=== PATIENT | male | born 1940 | race Caucasian/White ===

== ENCOUNTER 2020-01-30 06:13 | Day surgery (SDC) | payer MEDICARE, OTHER ==
[2020-01-30] MEDS ORDERED: fentaNYL 100 MCG/2 ML SDV IV ONE ×3 (06:14→07:27)
[2020-01-30] MEDS ORDERED: Midazolam 1 MG/ML 2 ML SDV IV ONE ×7 (06:14→07:41)
[2020-01-30] MEDS ORDERED: fentaNYL 100 MCG/2 ML SDV ONE (06:21)
[2020-01-30] MEDS ORDERED: Midazolam 1 MG/ML 2 ML SDV ONE (06:21)
[2020-01-30] MEDS ORDERED: Sodium Chloride 0.9% 10 ML Syringe FLUSH PRN (07:28)
[2020-01-30] MEDS ORDERED: Dextrose 5%-0.45% NaCl 1,000 ML IV SCH (07:30)
[2020-01-30 10:13] VITALS: BP 171/54; PULSE 50
--- NOTE | 2020-01-30 14:40 | OR ---
DATE: 01/30/2020 PROCEDURES PERFORMED: Total colonoscopy and multiple cold snare polypectomies. INSTRUMENT USED: PCF-H190DL Olympus video colonoscope. PREMEDICATIONS: Fentanyl 100 mcg intravenous, Versed 4 mg intravenous. Nasal O2 cannula. The procedure was done under pulse oximetry, BP recording, and street commissioner. INDICATION: The patient with previous colonic polyps. Surveillance colonoscopic examination is done for detection of any polypoid lesions and removal, endoscopic hemostasis therapy if needed. DESCRIPTION OF PROCEDURE: Initial rectal exam was unremarkable. Rigid anoscopy was normal. The colonoscope was passed with ease. In the proximal rectum, diminutive benign-appearing polyp was noted, photograph was taken, cold snare polypectomy was done, tissue was retrieved and sent for histopathology. Numerous scattered diverticula were noted in the distal left colon along with some deformity. The scope was passed with ease up to the ileocecal area. Photographs were taken of the cecum showing 5 mm sized polyp, cold snare polypectomy was done, the tissue was retrieved and sent for histopathology. No bleeding was noted from any of the visualized areas at the commencement of the examination. The bowel preparation was found to be adequate, Ketchum scale 2 in the right and left colon, 3 in transverse colon, total score of 7. No stricture. No vascular ectasia. No large isolated ulceration seen. No evidence of diffuse inflammatory bowel disease in the form of friability, contact bleeding, or ulcerations. Probing the proximal sides of folds and flexures using adequate distention and clearing up the stool material, withdrawal of the scope was made. In the proximal descending colon, diminutive benign-appearing polyp was noted, cold snare polypectomy was done, the tissue was retrieved and sent for histopathology. No bleeding was noted from any of the visualized areas at the completion of examination. IMPRESSION: 1. Colonic diverticulosis. 2. Multiple colonic polyps. The patient tolerated the procedure well. [facility] /[id number]
--- NOTE | 2020-01-31 09:07 | LETTER ---
01/30/2020 Arti Bullock NP [address] [id number] RE: JEB COLEY : 1940 Dear Ms. Bullock: Mr. Jeb Coley had colonoscopic examination done this morning and he tolerated the procedure well. I herewith send a copy of the endoscopy note and photographs for your review. Thank you. Sincerely, [facility] /[id number]
== END 2020-01-30 09:30 | disposition home or self-care (01) ==
LOC: DL.ENDO 06:13
PROVIDERS: ATTEND Internal Medicine Gastroenterology
DX: Z12.11 Encounter for screening for malignant neoplasm of colon (principal); D12.0 Benign neoplasm of cecum; D12.4 Benign neoplasm of descending colon; D12.8 Benign neoplasm of rectum; K57.30 Diverticulosis of large intestine without perforation or abscess without bleeding; E66.09 Other obesity due to excess calories; I10 Essential (primary) hypertension; I87.303 Chronic venous hypertension (idiopathic) without complications of bilateral lower extremity; M19.90 Unspecified osteoarthritis, unspecified site; Z86.010 Personal history of colon polyps; Z88.5 Allergy status to narcotic agent; Z88.1 Allergy status to other antibiotic agents; Z90.89 Acquired absence of other organs; Z90.49 Acquired absence of other specified parts of digestive tract; Z98.890 Other specified postprocedural states; Z87.891 Personal history of nicotine dependence; Z68.32 Body mass index [BMI] 32.0-32.9, adult
CPT/HCPCS: J2250; J3010; J7042